=== PATIENT | female | born 1940 | race Caucasian/White ===

== ENCOUNTER 2020-12-03 17:01 | Emergency (ER) | payer MEDICARE ==
[~2020-12-03] VITALS: Ht 154.9 cm; Wt 56.7 kg
[2020-12-03] MEDS ORDERED: MIDODRINE HCL5 MG PO (17:24)
[2020-12-03] MEDS ORDERED: SIMVASTATIN80 MG PO (17:28)
[2020-12-03] MEDS ORDERED: METOPROLOL TAR100 MG PO (17:28)
[2020-12-03] MEDS ORDERED: LASIX40 MG PO (17:28)
[2020-12-03] MEDS ORDERED: VASOTEC5 MG PO (17:28)
[2020-12-03] MEDS ORDERED: LEVOTHYROXINE50 MCG PO (17:28)
[2020-12-03] MEDS ORDERED: SINGULAIR10 MG PO (17:28)
[2020-12-03] MEDS ORDERED: NEXIUM40 MG PO (17:28)
[2020-12-03] MEDS ORDERED: ALENDRONATE SOD70 MG PO (17:28)
[2020-12-03] MEDS ORDERED: ELIQUIS5 MG PO (17:28)
[2020-12-03] MEDS ORDERED: DIGOXIN125 MCG PO (17:28)
[2020-12-03] MEDS ORDERED: PANTOPRAZOLE 40 MG 10ML VIAL IV STA (17:30)
[2020-12-03 17:42] LABS: BASOPHILS % 0.4 % (0.0-1.0); HEMATOCRIT 36.3 % (34.2-44.1); LYMPHOCYTES # (AUTO) 1.1 (1.0-3.2); LYMPHOCYTES % 11.4 % (18.0-39.1); MEAN CORPUSCULAR HEMOGLOBIN 26.1 pg (28-32); MEAN CORPUSCULAR HGB CONC 30.3 g/dL (31-35); NEUTROPHILS # (AUTO) 7.8 (2.1-6.9); NEUTROPHILS % 77.8 % (38.7-80.0); PLATELET COUNT 284 x10e3/uL (140-360); RED BLOOD COUNT 4.22 x10e6/uL (3.6-5.1); RED CELL DISTRIBUTION WIDTH 14.2 % (11.7-14.4)
[2020-12-03 17:49] LABS: CLARITY,URINE SL CLOUDY (CLEAR); COLOR,URINE STRAW (YELLOW); LEUKOCYTE ESTERASE ,URINE TRACE (NEGATIVE)
[2020-12-03 17:50] LABS: KETONES,URINE NEGATIVE (NEGATIVE); NITRITE,URINE NEGATIVE (NEGATIVE); PROTEIN,URINE DIPSTICK 2+ (NEGATIVE); URINE UROBILINOGEN 1 mg/dL (0.2 - 1)
[2020-12-03 17:57] LABS: ALANINE AMINOTRANSFERASE 11 IU/L (0-55); ALBUMIN 3.2 g/dL (3.5-5.0); ALBUMIN/GLOBULIN RATIO 1.2 (0.8-2.0); ALKALINE PHOSPHATASE 50 IU/L (40-150); AMYLASE 38 U/L (25-125); ANION GAP 14.3 mmol/L (8-16); BLOOD UREA NITROGEN 11 mg/dL (7-26); BUN/CREATININE RATIO 18 (6-25); CALCIUM 8.3 mg/dL (8.4-10.2); CARBON DIOXIDE 27 mmol/L (22-29); CHLORIDE 104 mmol/L (98-107); CREATININE, SERUM 0.62 mg/dL (0.57-1.11); EST GLOMERULAR FILTRATION RATE > 60 ML/MIN (60-); GLUCOSE 118 mg/dL (74-118); LIPASE 10 U/L (8-78); POTASSIUM 3.3 mmol/L (3.5-5.1); SODIUM 142 mmol/L (136-145)
[2020-12-03 18:05] LABS: WBC,URINE (MAN) 0-5 /HPF (0-5)
[2020-12-03 18:06] LABS: BACTERIA,URINE MODERATE /HPF; EPITHELIAL CELLS,URINE MODERATE /LPF
[2020-12-03 18:13] LABS: CREATINE KINASE 58 IU/L (29-168)
[2020-12-03] MEDS ORDERED: SODIUM CHLORIDE 0.9% 50ML 50 ML ONE (18:17)
[2020-12-03] MEDS ORDERED: IOPAMIDOL 370 MG/ML 200 ML INFUS..BTL INJ ONE (18:18)
[2020-12-03] MEDS ORDERED: ALBUTEROL/IPRATROPIUM 3 ML NEB NEB ONE (22:15)
== END 2020-12-03 23:45 | disposition home or self-care (01) ==
LOC: ER 17:29
DX: R10.13 Epigastric pain (principal); K29.70 Gastritis, unspecified, without bleeding; R94.31 Abnormal electrocardiogram [ECG] [EKG]; I10 Essential (primary) hypertension; I50.9 Heart failure, unspecified; E03.9 Hypothyroidism, unspecified; K21.9 Gastro-esophageal reflux disease without esophagitis
CPT/HCPCS: 36415; 71045; 71250; 74177; 80053; 81001; 82150; 82550; 82553; 83690; 84484; 85025; 93005; 94640; 99284; C9113; Q9967